=== PATIENT | male | born 1965 | race African-American/Black ===

== ENCOUNTER 2017-02-02 22:48 | Emergency (ER) | payer MEDICAID, MEDICARE ==
[~2017-02-02] VITALS: Ht 190.5 cm; Wt 81.6 kg
[2017-02-02 22:54] VITALS: BP 172/114
--- NOTE | 2017-02-02 23:04 | NUR ---
DAT ALS TO ER BED 7
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
[2017-02-02] MEDS ORDERED: BACITRACIN OINT 500 UNITS/GM PKT TP ONE (23:20)
[2017-02-02] MEDS ORDERED: KETOROLAC 30 MG/ML VIAL IVP ONE (23:20)
[2017-02-02] MEDS ORDERED: HYDROcodone/APAP 5/325 MG 1 TAB TAB PO ONE (23:20)
[2017-02-03 00:14] VITALS: BP 139/87
--- NOTE | 2017-02-03 00:14 | NUR ---
Patient discharged with v/s stable. Written and verbal after care instructions given and explained. Patient alert, oriented and verbalized understanding of instructions. Ambulatory with steady gait. All questions addressed prior to discharge. ID band removed. Patient advised to follow up with PMD OR RETURN TO ER IF CONDITION WORSENS. Rx of NAPROSYN given. Patient educated on indication of medication including possible reaction and side effects. Opportunity to ask questions provided and answered.
== END 2017-02-03 00:14 | disposition home or self-care (01) ==
LOC: MED 22:48
DX: S63.502A Unspecified sprain of left wrist, initial encounter (principal); S00.511A Abrasion of lip, initial encounter; S00.11XA Contusion of right eyelid and periocular area, initial encounter; Y04.2XXA Assault by strike against or bumped into by another person, initial encounter; Y93.89 Activity, other specified; Y92.521 Bus station as the place of occurrence of the external cause; Y99.8 Other external cause status
CPT/HCPCS: 29125; 70450; 73110; 96374; 99284; J1885